=== PATIENT | male | born 1990 | race Caucasian/White ===

== ENCOUNTER 2019-02-03 22:32 | Emergency (ER) | payer SELFPAY ==
[~2019-02-03] VITALS: Ht 182.9 cm; Wt 104.3 kg
[2019-02-03 22:43] VITALS: BP 105/49
[2019-02-04] MEDS ORDERED: HYDROcodone-ACET 5/325MG TAB PO ONE (01:30)
[2019-02-04] MEDS ORDERED: KETOROLAC TROMETH 60MG/2ML VIAL IM ONE (01:30)
[2019-02-04] MEDS ORDERED: methylPREDNISolone SOD SUCC 125 MG/2 ML VL IM ONE (01:30)
== END 2019-02-04 02:47 | disposition home or self-care (01) ==
LOC: ER 22:35
DX: S42.142A Displaced fracture of glenoid cavity of scapula, left shoulder, initial encounter for closed fracture (principal); S22.42XA Multiple fractures of ribs, left side, initial encounter for closed fracture; S80.212A Abrasion, left knee, initial encounter; V29.49XA Motorcycle driver injured in collision with other motor vehicles in traffic accident, initial encounter; Y93.55 Activity, bike riding; Y92.488 Other paved roadways as the place of occurrence of the external cause; Y99.8 Other external cause status
CPT/HCPCS: 29105; 72128; 73030; 73700; 96372; 99284; J1885; J2930